=== PATIENT | female | born 1975 | race Caucasian/White ===

== ENCOUNTER 2016-06-22 02:17 | Emergency (ER) | payer BC ==
[~2016-06-22] VITALS: Ht 149.9 cm; Wt 61.7 kg
[2016-06-22 02:26] VITALS: BP 144/89
--- NOTE | 2016-06-22 02:36 | NUR ---
CAME IN WITH C/O N/V AND ABD PAIN 2 HOURS AGO.
--- NOTE | 2016-06-22 03:07 | NUR ---
Patient being evaluated by physician at bedside.
[2016-06-22] MEDS ORDERED: KETOROLAC 60 MG/2 ML VIAL IM ONE (03:10)
[2016-06-22] MEDS ORDERED: ONDANSETRON 4 MG ODT PO ONE (03:10)
[2016-06-22 03:55] VITALS: BP 129/74
--- NOTE | 2016-06-22 03:55 | NUR ---
Patient discharged with v/s stable. Written and verbal after care instructions given and explained. Patient alert, oriented and verbalized understanding of instructions. Ambulatory with steady gait. All questions addressed prior to discharge. ID band removed. Patient advised to follow up with PMD. Rx of ZOFRAN,MOTRIN,IMODIUM given. Patient educated on indication of medication including possible reaction and side effects. Opportunity to ask questions provided and answered.
== END 2016-06-22 03:55 | disposition home or self-care (01) ==
LOC: MED 02:18
DX: R10.13 Epigastric pain (principal); R19.7 Diarrhea, unspecified; R11.2 Nausea with vomiting, unspecified; Z90.49 Acquired absence of other specified parts of digestive tract; Z90.89 Acquired absence of other organs
CPT/HCPCS: 81002; 81025; 96372; 99283; J1885; S0119

== ENCOUNTER 2018-09-10 21:54 | Emergency (ER) | payer BC, OTHER ==
[~2018-09-10] VITALS: Ht 152.4 cm; Wt 66.2 kg
[2018-09-10] MEDS ORDERED: SYN.075 PO (22:00)
--- NOTE | 2018-09-10 22:00 | NUR ---
EKG PERFORMED IN TRIAGE.
--- NOTE | 2018-09-10 22:05 | NUR ---
OKAY TO WAIT IN LOBBY PER ER MD PEGUERO.
--- NOTE | 2018-09-10 22:41 | NUR ---
PT AMBULATED TO BED #5
--- NOTE | 2018-09-10 22:50 | NUR ---
PATIENT PRESENTED TO ED C/O CHEST PAIN THAT DOES NOT RADIATE. PT STATES SHE TOOK SOME IBUPROFEN AROUND 1930 BUT NOT EFFECTIVE. SHE ALSO C/O LEFT ARM PAIN, DENIES N/V/D; SKIN IS PINK/WARM/DRY; AAOX4 WITH EVEN AND STEADY GAIT; LUNGS CLEAR BL; HR EVEN AND REGULAR; PATIENT STATES PAIN OF 6/10 AT THIS TIME; VSS; PATIENT POSITIONED FOR COMFORT; HOB ELEVATED; BED DOWN. HX: ASTHMA, HYPOTHYROIDISM
--- NOTE | 2018-09-10 22:51 | NUR ---
DR. SALEEM EVALUATING AT BEDSIDE.
--- NOTE | 2018-09-10 22:58 | NUR ---
PT TAKEN TO XRAY VIA WC.
[2018-09-10] MEDS ORDERED: KETOROLAC 60 MG/2 ML VIAL IM ONE (23:20)
--- NOTE | 2018-09-10 23:36 | NUR ---
Patient discharged with v/s stable. Written and verbal after care instructions given and explained. Patient alert, oriented and verbalized understanding of instructions. Ambulatory with steady gait. All questions addressed prior to discharge. ID band removed. Patient advised to follow up with PMD. Rx of MOTRIN 600 MG given. Patient educated on indication of medication including possible reaction and side effects. Opportunity to ask questions provided and answered.
[2018-09-10 23:37] VITALS: BP 105/75
== END 2018-09-10 23:37 | disposition home or self-care (01) ==
LOC: MED 21:54
DX: R07.89 Other chest pain (principal); M79.602 Pain in left arm; R06.02 Shortness of breath; J45.909 Unspecified asthma, uncomplicated; E03.9 Hypothyroidism, unspecified; Z79.899 Other long term (current) drug therapy
CPT/HCPCS: 71045; 93005; 96372; 99283; J1885